=== PATIENT | female | born 1960 | race Caucasian/White ===

== ENCOUNTER 2024-09-02 15:01 | Emergency (ER) | payer MEDICARE, BC ==
[~2024-09-02] VITALS: Ht 165.1 cm; Wt 68.0 kg
[2024-09-02 15:17] VITALS: BP 149/82
[2024-09-02 15:31] VITALS: BP 128/67
[2024-09-02] MEDS ORDERED: LEVOCETIRIZINE D5 MG PO (16:52)
[2024-09-02] MEDS ORDERED: MEDDOSEPAK PO (16:52)
[2024-09-02] MEDS ORDERED: ZPAK PO (16:52)
[2024-09-02 17:02] VITALS: BP 149/82
== END 2024-09-02 17:07 | disposition home or self-care (01) ==
LOC: ED 15:01
DX: J06.9 Acute upper respiratory infection, unspecified (principal); I10 Essential (primary) hypertension; Z20.822 Contact with and (suspected) exposure to COVID-19